=== PATIENT | male | born 1970 ===

== ENCOUNTER 2021-10-04 15:40 | Emergency (ER) | payer OTHER, BC ==
[2021-10-04] MEDS ORDERED: Sodium Chloride 0.9% 1,000 ML IV ONE (16:24)
[2021-10-04] MEDS ORDERED: Sodium Chloride 0.9% 10 ML Syringe FLUSH PRN (16:24)
[2021-10-04] MEDS ORDERED: Sodium Chloride 0.9% 2.5 ML Syringe FLUSH PRN (16:24)
[2021-10-04] MEDS ORDERED: Ondansetron 4 MG/2 ML SDV IVPUSH ONE (16:24)
[2021-10-04] MEDS: Morphine 4 MG/ML VIAL IM ONE ×2 (16:40→17:01)
[2021-10-04 16:51] LABS: CARBON DIOXIDE,CO2 25.5 mmol/L (21.0-32.0); POTASSIUM,K 3.8 mmol/L (3.5-5.1)
[2021-10-04] MEDS ORDERED: Morphine 4 MG/ML VIAL IVPUSH ONE ×2 (16:52→17:01)
[2021-10-04] MEDS ORDERED: Ketorolac 30 MG/ML SDV IVPUSH ONE (17:01)
[2021-10-04] MEDS ORDERED: Iopamidol 755 MG/ML 500 ML Multipack Bottle IVPUSH STA (17:26)
[2021-10-05 02:45] VITALS: BP 120/77; PULSE 67
== END 2021-10-04 19:09 | disposition home or self-care (01) ==
LOC: MW.ED 15:40
DX: N20.0 Calculus of kidney (principal); Z79.899 Other long term (current) drug therapy; Z79.84 Long term (current) use of oral hypoglycemic drugs; Z20.822 Contact with and (suspected) exposure to COVID-19
CPT/HCPCS: 36415; 74178; 80053; 81001; 85025; 87635; 96361; 96374; 96375; 99284; J1885; J2270; J2405; J3490; J7030; Q9967; U0002